=== PATIENT | female | born 1980 | race Caucasian/White ===

== ENCOUNTER 2021-01-27 03:19 | Emergency (ER) | payer BC ==
[~2021-01-27] VITALS: Ht 149.9 cm; Wt 72.6 kg
[~2021-01-27 03:19] MED LIST: CYCL10 PO; HYDACE5 PO
[2021-01-27] MEDS ORDERED: PRED20 PO (03:57)
[2021-01-27] MEDS ORDERED: LIDO700A20 TOP (03:57)
[2021-01-27] MEDS ORDERED: CYCL10 PO (03:57)
== END 2021-01-27 04:12 | disposition home or self-care (01) ==
LOC: ER 03:19
DX: M54.16 Radiculopathy, lumbar region (principal); Z88.0 Allergy status to penicillin; Z88.1 Allergy status to other antibiotic agents
CPT/HCPCS: 99282; A9270

== ENCOUNTER 2021-12-10 23:22 | Emergency (ER) | payer BC ==
[~2021-12-10] VITALS: Ht 149.9 cm; Wt 68.0 kg
[~2021-12-10 23:22] MED LIST changes: +LIDO700A20 TOP; +PRED20 PO
[2021-12-11] MEDS ORDERED: Veetids 500500 MG PO (00:25)
[2021-12-11] MEDS ORDERED: ONDA4ODT MM (00:25)
== END 2021-12-11 03:13 | disposition home or self-care (01) ==
LOC: ER 23:22
DX: K04.7 Periapical abscess without sinus (principal); Z88.0 Allergy status to penicillin; Z88.8 Allergy status to other drugs, medicaments and biological substances; Z79.899 Other long term (current) drug therapy
CPT/HCPCS: 96374; 96375; 96376; 99284-25; A9270

== ENCOUNTER → 2025-06-18 | Outpatient (CLI) | payer OTHER ==
[~2025-06-18] MED LIST changes: +ONDA4ODT MM; +Veetids 500500 MG PO
== END ==
LOC: LAB 09:33 → LAB SHORT 09:33
PROVIDERS: Advanced Practice Midwife
DX: Z01.419 Encounter for gynecological examination (general) (routine) without abnormal findings (principal)
CPT/HCPCS: 87624; G0145